=== PATIENT | female | born 1990 | race Caucasian/White ===

== ENCOUNTER 2018-05-16 19:30 | Outpatient (CLI) | payer MEDICAID ==
[2018-05-16 20:57] LABS: ADD UMIC YES; UR ASCORBIC ACID NEGATIVE (NEGATIVE); UR BILIRUBIN (Dip) NEGATIVE (NEGATIVE); UR BLOOD (Dip) 1+ mg/dL (NEGATIVE); UR CLARITY CLEAR (CLEAR); UR COLOR STRAW (YELLOW); UR GLUCOSE (Dip) NEGATIVE (NEGATIVE); UR KETONES (Dip) NEGATIVE (NEGATIVE); UR LEUKOCYTE ESTERASE (Dip) 1+ Leu/ul (NEGATIVE); UR NITRITE (Dip) NEGATIVE (NEGATIVE); UR RBC 1 /HPF (0-5); UR TOTAL PROTEIN (Dip) NEGATIVE (NEGATIVE); UR UROBILINOGEN (Dip) NEGATIVE (NEGATIVE); UR WBC 1 /HPF (0-5)
[2018-05-16 21:03] LABS: RUPTURE FETAL MEMBRANES NEGATIVE (NEGATIVE)
== END 2018-05-16 22:05 | disposition home or self-care (01) ==
LOC: OBT 19:30 → L-D 19:30 → OBT 22:05
DX: O20.8 Other hemorrhage in early pregnancy (principal); Z3A.36 36 weeks gestation of pregnancy; O62.9 Abnormality of forces of labor, unspecified
CPT/HCPCS: 76818; 81001; 84112

== ENCOUNTER 2018-06-08 20:07 | Inpatient (IN) | payer MEDICAID ==
[2018-06-08] MEDS ORDERED: CARBOPROST 250 MCG INJ IM (21:00)
[2018-06-08] MEDS ORDERED: MISOPROSTOL 200 MCG TAB PR (21:00)
[2018-06-08] MEDS ORDERED: OXYTOCIN 30 UNITS/LR 500 ML IV ×3 (21:00)
[2018-06-08] MEDS ORDERED: LIDOCAINE 1% (MPF) 30 ML INJ INJ (21:00)
[2018-06-08] MEDS ORDERED: BUTORPHANOL 2 MG INJ IV (21:00)
[2018-06-08] MEDS ORDERED: METHYLERGONOVINE 0.2 MG INJ IM (21:00)
[2018-06-08 22:53] LABS: ADD MAN DIFF? NO
[2018-06-08 23:00] LABS: BASOPHILS % 0.4 % (0.0-2.0); EOSINOPHILS # 0.1 10^3/ul (0.0-0.5); HEMATOCRIT 31.9 % (37.0-47.0); HEMOGLOBIN 10.9 g/dl (12.0-16.0); LYMPHOCYTES # 1.5 10^3/ul (0.8-2.9); LYMPHOCYTES % 19.9 % (15.0-51.0); MEAN CORPUSCULAR HEMOGLOBIN 26.5 pg (29.0-33.0); MEAN CORPUSCULAR HGB CONC 34.2 g/dl (32.0-37.0); MEAN CORPUSCULAR VOLUME 77.4 fl (82.0-101.0); MEAN PLATELET VOLUME 11.8 fl (7.4-10.4); MONOCYTE # 0.5 10^3/ul (0.3-0.9); MONOCYTES % 6.1 % (0.0-11.0); NEUTROPHIL # 5.5 10^3/ul (1.6-7.5); NEUTROPHILS % 71.8 % (39.0-77.0); PLATELET COUNT 194 10^3/UL (140-415); RED BLOOD COUNT 4.12 10^6/ul (4.20-5.40); RED CELL DISTRIBUTION WIDTH 15.7 % (11.5-14.5)
[2018-06-08 23:00] LABS: WHITE BLOOD COUNT 7.7 10^3/ul (4.8-10.8)
[2018-06-08 23:19] LABS: INR 0.99; PROTIME 13.2 Sec (11.9-14.9)
[2018-06-08 23:20] LABS: PARTIAL THROMBOPLASTIN TIME 28.1 Sec (23.0-35.0)
[2018-06-08] MEDS: LACTATED RINGER'S 1,000 ML IV* (23:23)
[2018-06-08 23:27] LABS: ALANINE AMINOTRANSFERASE 16 IU/L (13-69); ALBUMIN 2.7 g/dl (3.3-4.9); ALBUMIN/GLOBULIN RATIO 1.03; ALKALINE PHOSPHATASE 119 IU/L (42-121); ANION GAP 12 (8-16); ASPARTATE AMINO TRANSFERASE 16 IU/L (15-46); BILIRUBIN,INDIRECT 0.2 mg/dl (0-1.1); BILIRUBIN,TOTAL 0.2 mg/dl (0.2-1.3); BLOOD UREA NITROGEN 7 mg/dl (7-20); CALCIUM 9.4 mg/dl (8.4-10.2); CARBON DIOXIDE 22 mmol/L (21-31); CHLORIDE 108 mmol/L (97-110); CREATININE 0.62 mg/dl (0.44-1.00); GLUCOSE 88 mg/dl (70-220); POTASSIUM 3.7 mmol/L (3.5-5.1); SODIUM 138 mmol/L (135-144); TOTAL PROTEIN 5.3 g/dl (6.1-8.1); URIC ACID 6.2 mg/dl (3.1-7.9)
[2018-06-08] MEDS ORDERED: NALOXONE (0.4 MG/ML) INJ IV (23:30)
[2018-06-08] MEDS ORDERED: ZOLPIDEM 5 MG TAB PO (23:30)
[2018-06-08] MEDS ORDERED: HYDROmorphONE 0.5 MG/0.5 ML SYG IV ×2 (23:30)
[2018-06-08] MEDS ORDERED: DIPHENHYDRAMINE 50 MG INJ IV (23:30)
[2018-06-08] MEDS ORDERED: KETOROLAC 30 MG INJ IV (23:30)
[2018-06-08 23:58] LABS: HEPATITIS B SURFACE ANTIGEN NEGATIVE (NEGATIVE)
[2018-06-09] MEDS: OXYTOCIN 30 UNITS/LR 500 ML IV ×3 (03:31→22:49)
[2018-06-09] MEDS: ONDANSETRON 4 MG INJ IV ×2 (03:31→16:09)
[2018-06-09 04:08] LABS: ADD UMIC NO; UR ASCORBIC ACID NEGATIVE (NEGATIVE); UR BILIRUBIN (Dip) NEGATIVE (NEGATIVE); UR BLOOD (Dip) NEGATIVE (NEGATIVE); UR CLARITY CLEAR (CLEAR); UR COLOR YELLOW (YELLOW); UR GLUCOSE (Dip) NEGATIVE (NEGATIVE); UR KETONES (Dip) NEGATIVE (NEGATIVE); UR LEUKOCYTE ESTERASE (Dip) NEGATIVE Leu/ul (NEGATIVE); UR NITRITE (Dip) NEGATIVE (NEGATIVE); UR SPECIFIC GRAVITY (Dip) 1.011 (1.003-1.030); UR TOTAL PROTEIN (Dip) NEGATIVE (NEGATIVE); UR UROBILINOGEN (Dip) NEGATIVE (NEGATIVE)
[2018-06-09] MEDS: LACTATED RINGER'S 1,000 ML IV* ×2 (05:19→10:12)
[2018-06-09] MEDS ORDERED: OXYTOCIN 30 UNITS/LR 500 ML BAG IV (07:00)
[2018-06-09] MEDS: FENTAnyl 2MCG/ML-ROPIV 0.2% 100 ML BAG EPI ×2 (07:33→13:04)
[2018-06-09] MEDS: AMPICILLIN 2 GM/NS (PMX) 100 ML IV (08:04)
[2018-06-09] MEDS: AMPICILLIN 1 GM/NS (PMX) 50 ML IV ×2 (11:40→15:59)
[2018-06-09] MEDS: ACETAMINOPHEN 325 MG TAB PO (12:27)
[2018-06-09] MEDS: GENTAMICIN 80 MG/NS (PMX) 50 ML IVPB (14:09)
[2018-06-09 16:31] LABS: RAPID PLASMA REAGIN NONREACTIVE (NR)
[2018-06-09] MEDS ORDERED: CEFAZOLIN 2 GM/50 ML (PMX) 50 ML IVPB (17:07)
[2018-06-09] MEDS ORDERED: CEFAZOLIN 2 GM/50 ML (PMX) 50 ML IV (17:30)
[2018-06-09] MEDS ORDERED: OXYTOCIN 10 UNIT INJ (17:46)
[2018-06-09] MEDS ORDERED: morphine SULFATE/PF (10 MG/10 ML) INJ (17:46)
[2018-06-09] MEDS ORDERED: DEXAMETHASONE 4 MG/ML 1 ML INJ (17:46)
[2018-06-09] MEDS ORDERED: METOCLOPRAMIDE 10 MG INJ (17:46)
[2018-06-09] MEDS ORDERED: METOCLOPRAMIDE 10 MG INJ IV (18:00)
[2018-06-09] MEDS ORDERED: ONDANSETRON 4 MG INJ IV ×2 (18:00)
[2018-06-09] MEDS ORDERED: ACETAMINOPHEN 500 MG TAB PO (18:00)
[2018-06-09] MEDS ORDERED: morphine 2 MG INJ IV ×2 (18:00)
[2018-06-09] MEDS ORDERED: NALOXONE (0.4 MG/ML) INJ IV (18:00)
[2018-06-09] MEDS ORDERED: FENTAnyl 50 MCG/ML VIAL IV ×3 (18:00)
[2018-06-09] MEDS ORDERED: DIPHENHYDRAMINE 50 MG INJ IV ×2 (18:00)
[2018-06-09] MEDS ORDERED: NALBUPHINE HCL (10 MG/1 ML) INJ IV (18:00)
[2018-06-09] MEDS ORDERED: KETOROLAC 30 MG INJ IV (18:00)
[2018-06-09] MEDS ORDERED: HYDROmorphONE 1 MG/5 ML IV SYRINGE IV ×3 (18:00)
[2018-06-09] MEDS ORDERED: MEPERIDINE 25 MG INJ IV (18:00)
[2018-06-09] MEDS ORDERED: EPHEDrine SULFATE 50 MG/5 ML SYG IV (18:00)
[2018-06-09] MEDS ORDERED: HYDROmorphONE 0.5 MG/0.5 ML SYG IV ×2 (18:00)
[2018-06-09] MEDS ORDERED: OXYCODONE/ACETAMINOPHEN (5/325) TAB PO (18:00)
[2018-06-09] MEDS ORDERED: PHENYLephrine (100 MCG/ML) 5ML SYG (18:00)
[2018-06-09 18:38] LABS: CBV Base Excess -4.5 mmol/L; CBV COHb 0.7 %; CBV Total Hemglobin 15.9 g/dl; Cord Blood Venous AADO2 64.7 mmHg; Cord Blood Venous pO2 17.6 mmHG (15.0-45.0); Fraction OxyHgb Cord Venous 33.1 %; MODE ROOM AIR; Sample Type CBV; Site CORD
[2018-06-09] MEDS ORDERED: LANOLIN 7 GM TUBE TOP (22:00)
[2018-06-09] MEDS ORDERED: NA PHOSPHATE/BIPHOS 133 ML ENEMA PR (22:00)
[2018-06-09] MEDS ORDERED: GENTAMICIN 80 MG/NS (PMX) 50 ML IVPB (22:00)
[2018-06-09] MEDS ORDERED: CARBOPROST 250 MCG INJ IM (22:00)
[2018-06-09] MEDS: LACTATED RINGER'S 1,000 ML IV (22:00)
[2018-06-09] MEDS ORDERED: MISOPROSTOL 200 MCG TAB PR (22:00)
[2018-06-09] MEDS ORDERED: HYDROCODONE/APAP (5/325) TAB PO (22:00)
[2018-06-09] MEDS ORDERED: NACL 0.9% 3 ML SYG IV (22:00)
[2018-06-09] MEDS ORDERED: OXYTOCIN 30 UNITS/LR 500 ML IV (22:00)
[2018-06-09] MEDS ORDERED: METHYLERGONOVINE 0.2 MG INJ IM (22:00)
[2018-06-10] MEDS: LACTATED RINGER'S 1,000 ML IV ×3 (08:30→21:23)
[2018-06-10] MEDS: KETOROLAC 30 MG INJ IV ×2 (09:19→16:35)
[2018-06-10 11:05] LABS: ADD MAN DIFF? NO
[2018-06-10 11:08] LABS: BASOPHILS % 0.2 % (0.0-2.0); EOSINOPHILS % 0.1 % (0.0-7.0); HEMATOCRIT 28.7 % (37.0-47.0); HEMOGLOBIN 9.6 g/dl (12.0-16.0); LYMPHOCYTES # 1.5 10^3/ul (0.8-2.9); LYMPHOCYTES % 9.5 % (15.0-51.0); MEAN CORPUSCULAR HEMOGLOBIN 26.2 pg (29.0-33.0); MEAN CORPUSCULAR HGB CONC 33.4 g/dl (32.0-37.0); MEAN CORPUSCULAR VOLUME 78.2 fl (82.0-101.0); MEAN PLATELET VOLUME 10.9 fl (7.4-10.4); MONOCYTES % 6.1 % (0.0-11.0); NEUTROPHILS % 83.5 % (39.0-77.0); PLATELET COUNT 166 10^3/UL (140-415); RED BLOOD COUNT 3.67 10^6/ul (4.20-5.40); RED CELL DISTRIBUTION WIDTH 15.9 % (11.5-14.5)
[2018-06-10 11:08] LABS: WHITE BLOOD COUNT 15.6 10^3/ul (4.8-10.8)
[2018-06-10] MEDS: IBUPROFEN 800 MG TAB PO (22:10)
[2018-06-11] MEDS: LACTATED RINGER'S 1,000 ML IV (05:36)
[2018-06-11] MEDS: IBUPROFEN 800 MG TAB PO ×3 (05:41→21:46)
[2018-06-11] MEDS: HYDROCODONE/APAP (5/325) TAB PO ×2 (09:16→16:09)
[2018-06-11] MEDS ORDERED: LIDOCAINE 4% CR (16:50)
[2018-06-12] MEDS: HYDROCODONE/APAP (5/325) TAB PO ×3 (01:39→14:49)
[2018-06-12] MEDS: IBUPROFEN 800 MG TAB PO ×2 (06:10→13:39)
[2018-06-12] MEDS: DIPHTH/TET/ACEL PERTUSS (ADULT) 0.5 ML VIAL IM* (09:19)
[2018-06-12] MEDS: MEASLES,MUMPS,RUBELLA VACCINE INJ SC* (09:19)
== END 2018-06-12 17:00 | disposition home or self-care (01) | DRG 788 ==
LOC: OBT 20:07 → L-D 20:10 → OBT 20:45 → L-D 06-09 18:40 → PP1 06-09 21:22 → L-D 23:24
PROC: 10D00Z1 Extraction of Products of Conception, Low, Open Approach (ICD-10-PCS; principal; 2018-06-09)
DX: O75.2 Pyrexia during labor, not elsewhere classified (principal); O75.89 Other specified complications of labor and delivery; Z3A.39 39 weeks gestation of pregnancy; Z37.0 Single live birth
CPT/HCPCS: 36600; 62319; 80053; 81003; 82803; 84560; 85025; 85384; 85610; 85730; 86592; 86850; 86900; 86901; 87070; 87075; 87340; 88307; 90715; 99464

== ENCOUNTER 2018-06-21 02:24 | Emergency (ER) | payer MEDICAID | END 2018-06-21 04:24 | disposition home or self-care (01) | LOC: FTE 02:24 | DX: O86.01 Infection of obstetric surgical wound, superficial incisional site (principal); R40.2412 Glasgow coma scale score 13-15, at arrival to emergency department; B96.89 Other specified bacterial agents as the cause of diseases classified elsewhere | CPT/HCPCS: 99282 ==